=== PATIENT | male | born 1965 | race African-American/Black ===

== ENCOUNTER 2022-03-16 11:16 | Emergency (ER) | payer OTHER, SELFPAY ==
--- NOTE | ~2022-03-16 | XR_ITS ---
EXAMINATION: XR ankle RT min 3V DATE: 03/16/2022 11:40 INDICATION: Right ankle swelling and bruising post twisting injury TECHNIQUE: Anteroposterior, oblique, mortise, and lateral views of the right ankle were obtained. COMPARISON: None. FINDINGS: Small nondisplaced avulsion fracture at the tip of the lateral malleolus. Chronic heterotopic ossific ations along the medial lateral malleoli likely an additional heterotopic ossification along the dist al right tibiofibular syndesmosis consistent with sequela of chronic medial and lateral sided ankle s prain. Bone alignment remains essentially anatomic. No other fractures identified. Mild osteoarthriti s in the mid and hindfoot. A few small heterotopic ossicles along the Achilles tendon approximately 3 cm proximal to the site of the calcaneal insertion. The tendon appears thickened at the site of the heterotopic ossicles and attenuated more distally which suggests age-indeterminate Achilles tendon te ar. . IMPRESSION: 1. Acute nondisplaced avulsion fracture at the tip of the lateral malleolus. 2. Heterotopic ossification is consistent with chronic sprains of the stabilizing ligaments about the medial and lateral ankle as well as of the distal tibiofibular syndesmosis. 3. Attenuation the distal Achilles tendon with a few heterotopic, potentially enthesopathic ossicles in the more thickened Achilles tendon approximately 3 cm proximal to the attachment which is suspicio us for age indeterminate at least partial tear. Reviewed, dictated and finalized at location A. IMPRESSION: 1. Acute nondisplaced avulsion fracture at the tip of the lateral malleolus. 2. Heterotopic ossification is consistent with chronic sprains of the stabilizi ng ligaments about the medial and lateral ankle as well as of the distal tibiof ibular syndesmosis. 3. Attenuation the distal Achilles tendon with a few heterotopic, potentially e nthesopathic ossicles in the more thickened Achilles tendon approximately 3 cm proximal to the attachment which is suspicious for age indeterminate at least p artial tear.
[2022-03-16 11:29] VITALS: BP 132/100; PULSE 88; RESP 18; TEMP 36.8; O2SAT 100
--- NOTE | 2022-03-16 11:38 | ED.LOWEXIN ---
HPI - Extremity Injury (Lower) General Chief Complaint: Extremity Injury, Lower Stated Complaint: Right Foot Pain Time Seen by Provider: 03/16/22 12:06 Source: patient and RN notes reviewed Mode of arrival: ambulatory Limitations: no limitations History of Present Illness HPI Narrative: 56-year-old male presents concern for right ankle and foot pain. Reports on Thursday he rolled the ankle causing lateral, posterior and medial pain to the ankle. He reports swelling. Reports pain worsens with weightbearing. He reports he took ibuprofen. He denies decree strength, sensation, range of motion. MD complaint: ankle injury Related Data Allergies Allergy/AdvReac Type Severity Reaction Status Date / Time No Known Allergies Allergy Verified 03/16/22 12:06 Review of Systems Review of Systems: CONSTITUTIONAL: Denies malaise, chills, sweats, or fever. SKIN: Denies rash or itching, open skin, laceration, abrasion, redness, warmth MUSCULOSKELETAL: Reports right ankle pain and swelling NEUROLOGIC: Denies numbness, weakness All systems reviewed & are unremarkable except as noted in HPI and below PMFSH Comments At time of signature, agree with nursing past medical, surgical, social and family history. There is no relevant family history pertinent to the presenting complaint Exam Narrative: GENERAL: Well-appearing, well-nourished, and in no acute distress. HEAD: Normocephalic, atraumatic. EYES: PERRLA, conjunctivae clear NECK: Supple. CHEST: Speaks in full sentences. No respiratory distress. HEART: Regular rate and rhythm. Normal and equal peripheral pulses. EXTREMITIES: Right ankle, foot, digits have normal strength and sensation, grossly normal range of motion. Moderate circumferential edema with mild ecchymosis. 5/5 strength with ankle and digit flexion and extension. Normal sensation with sensitivity to light touch and pain. Medial, lateral, posterior ankle tenderness. No open wounds, no skin tenting, no devitalized tissue or atrophy, no trophic changes, no obvious deformity, alignment normal, nearby joints and structures intact. Distal pulses palpable and equal bilaterally, skin warm, dry, pink. Capillary refill less than 3 seconds. SKIN: Warm, dry, no rash. NEURO: Alert and oriented x3. PSYCH: Normal mood and affect Course Course Emergency Course: Patient is aware of diagnosis, understands and agrees to treatment plan. Anticipatory guidance given. Patient agrees to follow-up as directed and is aware of reasons to seek care at the emergency department. Portions of this record may have been created with voice recognition software Level of Care: Express Care Visit Vital Signs Vital signs: Vital Signs Temperature 98.3 F 03/16/22 11:29 Pulse Rate 88 03/16/22 11:29 Respiratory Rate 18 03/16/22 11:29 Blood Pressure 132/100 H 03/16/22 11:29 Pulse Oximetry 100 03/16/22 11:29 Oxygen Delivery Room Air 03/16/22 11:29 Temperature 98.3 F 03/16/22 11:29 Pulse Rate 88 03/16/22 11:29 Respiratory Rate 18 03/16/22 11:29 Blood Pressure 132/100 H 03/16/22 11:29 Pulse Oximetry 100 03/16/22 11:29 Oxygen Delivery Room Air 03/16/22 11:29 Reviewed. Procedures Orthopedic Splinting/Casting Injury #1: Splinting/Casting Date: 03/16/22 Splinting/Casting Time: 12:21 Side: right Lower Extremity Injury Location: ankle Splint: customized in ED OCL: short leg Pre-Procedure Neuro Vascular Exam: normal Post-Procedure Neuro Vascular Exam: normal Other Orthopedic Equipment: crutches Additional Comments: Patient weight limit is higher than the crutches available in [facility]. no equipment pharmacy is open today, patient was advised to limit activity on the crutches today and follow-up with ortho as soon as possible for further evaluation and treatment. MDM - Extremity Injury (Lower) MDM Narrative Medical decision making narrative: Patients inju
== END 2022-03-16 13:00 | disposition home or self-care (01) ==
PROVIDERS: Emergency Provider Nurse Practitioner
DX: S82.64XA Nondisplaced fracture of lateral malleolus of right fibula, initial encounter for closed fracture (principal); X50.9XXA Other and unspecified overexertion or strenuous movements or postures, initial encounter
CPT/HCPCS: 29515; 73610; 99204; G0463

== ENCOUNTER 2022-05-27 12:30 | Outpatient (RCR) | payer OTHER, SELFPAY ==
--- NOTE | 2022-04-28 12:31 | PTOPEVAL1 ---
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 He went to the ER and then was seen by Dr. Alvarez who gave him a brace. Patient has been to see Dr. Alvarez since then and has been released to light duty and able to get up around the home without the brace. Patient reports no pain, but is more swollen after being in a car for [address] to see family for weekend. Reported Pain Level Pain Score 0: Self Report Additional Pain Score Comments no pain, but will feel an electric shock every once in awhile along the lateral portion of his ankle. Assessment PT Clinical Summary Art is a 56 year old male coming into the clinic for his R ankle after a non-operative fx. Patient is on light duty at work and reporting no pain. Patient has increased swelling in the R foot and calf along with slight decrease in range of motion and strength. Patient should benefit from skilled physical therapy to progress back to regular duty at work and improve gait technique. Plan of Care Interventions Electrical Stimulation,Gait Training,Hot Pack/Cold Pack,Manual Therapy,Neuro Re-education,Patient/ Caregiver Education,Therapeutic Activities, Therapeutic Exercise,Ultrasound PT Services Indicated Yes Treatment Frequency and 2x/wk for 4 weeks Duration These treatments will address the objective and functional deficits as defined above. The patient will be advanced safely and appropriately in order for the patient to progress towards his/her prior level of function. Additional exercises will be introduced and as well as a comprehensive home exercise program upon discharge, if needed, ?to ensure carryover of functional gains achieved in the clinic. This treatment plan has been reviewed and agreement upon by the patient.
--- NOTE | 2022-05-27 16:04 | PTOPDC ---
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 He reports it is still a little swollen and feels a little tight, but so much better than it was at the beginning. Has an occasional jolt of pain in the ankle, but does not have a consistent contributing factor for while it happens Reported Pain Level Pain Score 0: Self Report Additional Pain Score Comments no pain at the moment, but reported the jolt of pain in his ankle only over the weekend. Assessment PT Clinical Summary Aidan has been coming to physical therapy since 04/28/22 and has attended 8 sessions. He has all of his goals besides single limb stance on the RLE . He is back at work according to him at full duty. Patient was given extra TubiGrip to help with swelling which has gone down 2 CM since initial visit. Patient okay with being discharged from physical therapy. Plan of Care PT Services Indicated No Treatment Frequency and Discharge from skilled physical therapy. Duration
== END 2022-07-14 08:45 | disposition home or self-care (01) ==
LOC: ANHGOSHPT 12:30
PROVIDERS: Visit Provider Orthopaedic Surgery
DX: S82.61XD Displaced fracture of lateral malleolus of right fibula, subsequent encounter for closed fracture with routine healing (principal)
CPT/HCPCS: 97110; 97140; 97161; 97530